=== PATIENT | female | born 2000 | race Caucasian/White ===

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

== ENCOUNTER → 2024-11-11 | Outpatient (CLI) | payer BC ==
[~2024-11-11] MED LIST changes: +PROHANCE 279.3MG/ML 15ML VIAL ONE; +PROHANCE 279.3MG/ML 5ML VIAL ONE
== END ==
LOC: M PLAIMG 14:50
PROVIDERS: ATTEND Orthopaedic Surgery
DX: M54.50 Low back pain, unspecified (principal); M54.16 Radiculopathy, lumbar region

== ENCOUNTER → 2025-01-15 | Outpatient (CLI) | payer BC ==
[~2025-01-15] MED LIST changes: +GABA-1171 PO; +NAPR-885 PO; -PROHANCE 279.3MG/ML 15ML VIAL ONE; -PROHANCE 279.3MG/ML 5ML VIAL ONE
[2025-01-15 14:14] LABS: BASO # 0.1 10^3/uL (0.0-0.2); BASO % 0.5 % (0.0-1.0); EOS # 0.2 10^3/uL (0.0-0.5); EOS % 1.6 % (0.0-3.0); LYMPH # 2.9 10^3/uL (1.5-5.0); LYMPH % 29.5 % (24.0-44.0); MONO # 0.6 10^3/uL (0.0-0.8); MONO % 6.4 % (2.0-8.0); NEUTROPHILS # 6.1 10^3/uL (1.5-8.5); NEUTROPHILS % 61.5 % (36.0-66.0); PLATELET COUNT, AUTOMATED 330 10^3/uL (150-450)
[2025-01-15 14:17] LABS: APPEARANCE, URINE HAZY (CLEAR); BACTERIA, URINE AUTO 1+ (NEGATIVE); BILIRUBIN, URINE AUTO NEGATIVE (NEGATIVE); BLOOD, URINE BLOOD NEGATIVE (NEGATIVE); GLUCOSE, URINE (UA) AUTO NEGATIVE (NEGATIVE); GRANULAR CAST, URINE AUTO 1 /LPF; KETONE, URINE AUTO NEGATIVE (NEGATIVE); LEUKOCYTE ESTERASE, URINE AUTO TRACE (NEGATIVE); MUCUS, URINE SMALL (NEGATIVE); NITRITE, URINE AUTO NEGATIVE (NEGATIVE); PROTEIN, URINE AUTO 1+ mg/dL (NEGATIVE); RBC, URINE AUTO 1 /HPF (0-3); SPECIFIC GRAVITY URINE AUTO 1.023 (1.002-1.035); SQUAMOUS EPITHELIAL CELL UR AU 5 /HPF (0-6); UROBILINOGEN, URINE AUTO 0.2 mg/dL (0.0-2.0); WBC, URINE AUTO 3 /HPF (0-3)
[2025-01-15 14:28] LABS: CALCIUM LEVEL 9.1 MG/DL (8.5-10.1); CARBON DIOXIDE LEVEL 28 MMOL/L (20-31); CHLORIDE LEVEL 102 MMOL/L (98-107); CREATININE FOR GFR 0.62 MG/DL (0.55-1.30); GLOMERULAR FILTRATION RATE > 90.0 (>60); POTASSIUM SERUM 4.0 MMOL/L (3.5-5.1); SODIUM LEVEL 139 MMOL/L (136-145)
[2025-01-15 14:45] LABS: INR 0.89
== END ==
LOC: M RAD 13:17
PROVIDERS: ATTEND Neurological Surgery
DX: Z78.9 Other specified health status (principal); M54.50 Low back pain, unspecified

== ENCOUNTER → 2025-01-18 | Outpatient (CLI) | payer BC | LOC: M PLAIMG 11:55 | PROVIDERS: ATTEND Neurological Surgery | DX: M51.9 Unspecified thoracic, thoracolumbar and lumbosacral intervertebral disc disorder (principal); M47.816 Spondylosis without myelopathy or radiculopathy, lumbar region ==

== ENCOUNTER 2025-01-26 10:34 | Observation (INO) | payer BC ==
[~2025-01-26] VITALS: Ht 157.5 cm; Wt 98.0 kg
[2025-01-26] MEDS: ceFAZolin SOD 2 GM IV ONCE IV ONE (00:06)
[2025-01-26] MEDS: methylPREDNISolone SUSP 40 MG/ML 1 ML VIAL As Ordered ONE (00:09)
[2025-01-26] MEDS: LR 1,000 ML IV SCH (11:24)
[2025-01-26 11:53] LABS: HCG, SERUM QUALITATIVE NEGATIVE (NEGATIVE)
[2025-01-26] MEDS: PERCOCET 5MG/325MG TAB PO ONE (14:47)
[2025-01-26] MEDS: ONDANSETRON 4MG/2ML VIAL IV ONE (16:04)
[2025-01-26] MEDS ORDERED: ROCURONIUM BROMIDE 50MG/5ML VIAL As Ordered ONE (19:50)
[2025-01-26] MEDS ORDERED: ACETAMINOPHEN 1000MG/100ML IV BAG As Ordered ONE (19:50)
[2025-01-26] MEDS ORDERED: LIDOCAINE 2% 100 MG/5 ML SDV (FOR ANES.) As Ordered ONE (19:50)
[2025-01-26] MEDS ORDERED: MIDAZOLAM INJ 2 MG/2 ML VIAL As Ordered ONE (19:50)
[2025-01-26] MEDS ORDERED: dexAMETHasone 4 MG/ML 1 ML VIAL As Ordered ONE (19:51)
[2025-01-26] MEDS ORDERED: ONDANSETRON 4MG/2ML VIAL As Ordered ONE (19:51)
[2025-01-26] MEDS ORDERED: HYDROmorphone HCL 2 MG/ML 1 ML VIAL As Ordered ONE (20:46)
[2025-01-26] MEDS: LIDOCAINE W/EPINEPHrine 1% 20 ML VIAL As Ordered ONE (20:58)
[2025-01-27] VITALS (8 sets, daily range): BP systolic 113–139; BP diastolic 56–75; TEMP 97.2–98.1; O2SAT 94–98
[2025-01-27] MEDS ORDERED: dexmedeTOMIDine (4 MCG/ML) 200 MCG/50 ML BTL As Ordered ONE (00:22)
[2025-01-27] MEDS ORDERED: SUGAMMADEX SODIUM 200 MG/2 ML VIAL As Ordered ONE (00:54)
[2025-01-27] MEDS ORDERED: ONDANSETRON 4MG/2ML VIAL IV PRN (00:55)
[2025-01-27] MEDS ORDERED: HYDROMORPHONE HCL 0.5 MG/0.5 ML SYRINGE IV PRN (00:55)
[2025-01-27] MEDS ORDERED: LR 1,000 ML IV SCH (00:55)
[2025-01-27] MEDS ORDERED: CYCLOBENZAPRINE 10 MG TABLET PO PRN (01:35)
[2025-01-27] MEDS: NS (Normal Saline) 0.9% 1,000 ML IV ONE (02:14)
[2025-01-27] MEDS: ACETAMINOPHEN 325 MG TAB PO SCH (05:19)
[2025-01-27] MEDS ORDERED: HOME MED LIST COMPLETE! XX SCH (07:45)
[2025-01-27] MEDS ORDERED: ERGO125013 PO (07:45)
[2025-01-27] MEDS: DOCUSATE SODIUM 100 MG CAPSULE PO SCH (08:27)
[2025-01-27] MEDS: ceFAZolin SODIUM 2 GM in DEXTROSE 5% (D5W) ADV/MINI-BAG 50 ML IV SCH (08:28)
[2025-01-27] MEDS: ONDANSETRON 4MG/2ML VIAL IV PRN (09:24)
[2025-01-27] MEDS ORDERED: SENN-23 PO (14:24)
[2025-01-27] MEDS ORDERED: ONDA-282 PO (14:24)
[2025-01-27] MEDS ORDERED: CYCL10TA20 PO (14:24)
[2025-01-27] MEDS ORDERED: ACET-897 PO (14:24)
[2025-01-27] MEDS ORDERED: MIRA3350 PO (14:24)
[2025-01-27] MEDS ORDERED: OXYC-517 PO (14:24)
[2025-01-27] MEDS ORDERED: SENNA 8.6 MG TAB PO SCH (21:00)
[2025-01-28] MEDS ORDERED: HEPARIN SOD 5000 UNITS/ML 1 ML VIAL/SYRINGE SQ SCH (21:00)
== END 2025-01-27 15:35 | disposition home or self-care (01) ==
LOC: M SDC 10:34 → M ED INP 01-27 01:34 → M MS4PR 01-27 02:07
PROVIDERS: ADMIT Student in an Organized Health Care Education/Training Program; ATTEND Student in an Organized Health Care Education/Training Program
DX: M51.16 Intervertebral disc disorders with radiculopathy, lumbar region (principal); R11.0 Nausea; Z87.39 Personal history of other diseases of the musculoskeletal system and connective tissue; F41.9 Anxiety disorder, unspecified; F32.A Depression, unspecified; E66.01 Morbid (severe) obesity due to excess calories; Z68.39 Body mass index [BMI] 39.0-39.9, adult; Z79.899 Other long term (current) drug therapy
CPT/HCPCS: 36415; 63030; 76000; 84703; 86850; 86900; 86901; 88304; 96365; 96366; 96375; J0131; J0665; J0666; J0688; J1010; J1100; J1171; J2250; J2405; J2765; J3010